=== PATIENT | female | born 1995 | race Asian ===

== ENCOUNTER 2017-04-27 20:53 | Outpatient (CLI) | payer MEDICAID ==
--- NOTE | 2017-04-29 07:37 | Ultrasound Report ---
: 04/27/2017 CLINICAL HISTORY: IUD check. COMPARISON: 01/13/2012 Transabdominal and transvaginal ultrasound were done. Real-time scanning performed and static images obtained. FINDINGS: The uterus is anteverted. It measures 7.7 cm x 3.7 cm x 6.0 cm. Volume is 90.1 mL. Endo metrial echo complex measures 3 mm. IUD is seen in good position within the endometrial echo complex . This is seen both on transabdominal and transvaginal ultrasound. Right ovary measures 6.3 cm x 3.6 cm x 4.7 cm for a volume of 55.4 cm. Associated with the right ova ry is a right ovarian cyst measuring 4.5 cm x 3.0 cm x 3.8 cm. Left ovary measures 2.8 cm x 1.5 cm x 2.3 cm for a volume of 5.3 mL. IMPRESSION: UTERUS SHOWS AN IUD IN PLACE IN GOOD POSITION WITHIN THE CENTRAL ENDOUTERINE CAVITY. ENLARGED RIGHT OVARY IS NOTED BY A BENIGN CYST MEASURING 4.5 CM X 3.0 CM X 3.8 CM. JOB #: [id number] EXT JOB #:[id number]
== END 2017-04-27 20:54 | disposition home or self-care (01) ==
LOC: DI 20:53
PROVIDERS: ATTEND Physician Assistant Medical
DX: Z30.431 Encounter for routine checking of intrauterine contraceptive device (principal); N83.201 Unspecified ovarian cyst, right side
CPT/HCPCS: 76830; 76856

== ENCOUNTER 2018-05-24 08:00 | Outpatient (CLI) | payer MEDICAID ==
[2018-05-26 12:47] LABS: HEPATITIS C ANTIBODY NON-REACTIVE (NON-REACTIVE)
[2018-05-26 16:47] LABS: HIV AG/AB 4TH GEN NON-REACTIVE (NON-REACTIVE)
== END 2018-05-24 08:01 ==
LOC: LAB.F 08:00
PROVIDERS: ATTEND Physician Assistant Medical
DX: Z78.9 Other specified health status (principal)
CPT/HCPCS: 36415; 86803; 87389

== ENCOUNTER 2018-06-03 13:20 | Outpatient (CLI) | payer MEDICAID ==
[2018-06-03 17:55] LABS: HCG UR QUAL NEGATIVE
== END 2018-06-03 13:21 | disposition home or self-care (01) ==
LOC: LAB.F 13:20
PROVIDERS: ATTEND Physician Assistant Medical
DX: N91.2 Amenorrhea, unspecified (principal); Z11.3 Encounter for screening for infections with a predominantly sexual mode of transmission
CPT/HCPCS: 81025; 87491; 87591

== ENCOUNTER 2018-11-17 15:42 | Outpatient (CLI) | payer MEDICAID ==
[2018-11-18 12:32] LABS: HEPATITIS C ANTIBODY NON-REACTIVE (NON-REACTIVE); HIV AG/AB 4TH GEN NON-REACTIVE (NON-REACTIVE)
== END 2018-11-17 15:43 | disposition home or self-care (01) ==
LOC: LAB.F 15:42
PROVIDERS: ATTEND Physician Assistant Medical
DX: Z20.2 Contact with and (suspected) exposure to infections with a predominantly sexual mode of transmission (principal)
CPT/HCPCS: 36415; 81599; 86592; 86803; 87389

== ENCOUNTER 2018-11-24 18:16 | Outpatient (CLI) | payer MEDICAID ==
--- NOTE | 2018-11-25 01:01 | Ultrasound Report ---
Reason: IUD SURVEILLANCE Procedure Date: 11/24/2018 Accession Number: [id number] / [id number] Procedure: US - Pelvic w/Transvaginal CPT Code: FULL RESULT: EXAM: PELVIC ULTRASOUND EXAM DATE: 11/24/2018 06:56 PM. CLINICAL HISTORY: IUD surveillance. COMPARISON: None. TECHNIQUE: Real-time transabdominal pelvic scan performed to identify the uterus and adnexa and as an overview of other pelvic structures, followed by transvaginal scan to provide greater detail of the uterus and adnexa, with static image documentation. FINDINGS: Uterus: 7.3 x 5.2 x 3.3 cm, volume 65.1 cc. Anteverted position. Normal overall size and echotexture. Masses: None. Endometrium: 2.6 mm. Normal. An IUD is seen centrally within the uterine cavity. Cervix: Unremarkable. Right Ovary: 3.2 x 2.3 x 2 cm, volume 7.7 cc. Normal echotexture and blood flow. Left Ovary: 2.8 x 2 x 1.6 cm, volume 4.7 cc. Normal echotexture and blood flow. Free Fluid: None. Other: None. IMPRESSION: Normal pelvic ultrasound exam noting satisfactory IUD placement. RADIA
== END 2018-11-24 18:17 | disposition home or self-care (01) ==
LOC: DI 18:16
PROVIDERS: ATTEND Physician Assistant Medical
DX: Z30.431 Encounter for routine checking of intrauterine contraceptive device (principal)
CPT/HCPCS: 76830; 76856

== ENCOUNTER 2020-07-07 18:04 | Outpatient (CLI) | payer MEDICAID ==
--- NOTE | 2020-07-07 22:00 | Ultrasound Report ---
PROCEDURE: Pelvic w/Transvaginal INDICATIONS: OVARIAN CYST TECHNIQUE: Real-time scanning was performed of the pelvic organs, with image documentation. Additional endovagi nal scanning was necessary due to incomplete visualization of the adnexal and endometrial structures by transabdominal scanning. COMPARISON: 11/24/2018. FINDINGS: Transabdominal scanning: Limited scanning through the kidneys shows no hydronephrosis. No pathologi c free abdominal or pelvic fluid. Endovaginal scanning: Uterus: Uterus is normal in size at 8.9 x 4.0 x 5.2 cm. The endometrium measures 5 mm in combined t hickness. An IUD is identified within the endometrial cavity. Ovaries: Right ovary measures 3.4 x 1.5 x 1.9 cm. Left ovary measures 3.5 x 2.5 x 2.9 cm. Incidental ovarian follicle versus cyst noted measuring 1.6 cm. No suspicious ovarian or adnexal mass lesions. IMPRESSION: 1. Pelvic ultrasound without acute sonographic abnormalities. 2. Intrauterine device identified within the endometrial cavity and appears appropriately positioned. Reviewed by: Cody Juarez MD on 07/07/2020 9:59 PM PDT Approved by: Cody Juarez MD on 07/07/2020 9:59 PM PDT Station ID: [id number]
== END 2020-07-07 18:05 | disposition home or self-care (01) ==
LOC: DI 18:04
PROVIDERS: ATTEND Registered Nurse
DX: N83.209 Unspecified ovarian cyst, unspecified side (principal); Z97.5 Presence of (intrauterine) contraceptive device
CPT/HCPCS: 76830; 76856

== ENCOUNTER 2020-08-30 08:00 | Outpatient (CLI) | payer MEDICAID ==
[2020-08-30 20:44] LABS: TRICHOMONAS VAGINALIS DNA NEGATIVE (NEGATIVE)
== END 2020-08-30 23:59 | disposition home or self-care (01) ==
LOC: LAB.R 08:00
PROVIDERS: ATTEND Advanced Practice Midwife
DX: Z78.9 Other specified health status (principal)
CPT/HCPCS: 87491; 87591; 87661

== ENCOUNTER 2022-11-27 08:00 | Outpatient (CLI) | payer MEDICAID ==
[2022-11-27 23:02] LABS: CHLAMYDIA TRACHOMATIS DNA NEGATIVE (NEGATIVE); NEISSERIA GONORRHOEAE DNA NEGATIVE (NEGATIVE); TRICHOMONAS VAGINALIS DNA NEGATIVE (NEGATIVE)
== END 2022-11-27 23:59 | disposition home or self-care (01) ==
LOC: LAB.R 08:00
PROVIDERS: ATTEND Obstetrics & Gynecology
DX: Z11.3 Encounter for screening for infections with a predominantly sexual mode of transmission (principal)
CPT/HCPCS: 87491; 87591; 87661

== ENCOUNTER 2022-12-11 22:10 | Outpatient (CLI) | payer MEDICAID ==
--- NOTE | 2022-12-12 16:58 | Ultrasound Report ---
PROCEDURE: Pelvic w/Transvaginal INDICATIONS: PELVIC PAIN TECHNIQUE: Real-time scanning was performed of the pelvic organs, with image documentation. Additional endovagi nal scanning was necessary due to incomplete visualization of the adnexal and endometrial structures by transabdominal scanning. COMPARISON: None. FINDINGS: Uterus: Uterus is anteverted and normal in size at 8.5 x 3.7 x 4.9 cm. The myometrium is homogeneou s. The endometrium measures 4 mm in combined thickness. Intrauterine device is present. Ovaries: The right ovary measures 4.6 x 2.8 x 3.3 cm, with a calculated ovarian volume of 22 cc. Th e left ovary measures 2.9 x 1.7 x 1.9 cm, with a calculated ovarian volume of 4.9 cc. The ovaries jung ve a normal sonographic appearance. Less than 12 follicles can be seen in each ovary. No adnexal ma sses are seen. Other: No pathologic free abdominal or pelvic fluid. IMPRESSION: 1. Negative examination. 2. Normally positioned intrauterine device. Reviewed by: Pineda Box MD on 12/12/2022 4:56 PM PST Approved by: Pineda Box MD on 12/12/2022 4:56 PM PST Station ID: [id number]
== END 2022-12-11 22:11 | disposition home or self-care (01) ==
LOC: DI 22:10
PROVIDERS: ATTEND Obstetrics & Gynecology
DX: R10.2 Pelvic and perineal pain (principal); Z97.5 Presence of (intrauterine) contraceptive device

== ENCOUNTER 2024-07-14 11:30 | Outpatient (CLI) | payer MEDICAID ==
[2024-07-14 21:09] LABS: CHLAMYDIA TRACHOMATIS DNA NEGATIVE (NEGATIVE); NEISSERIA GONORRHOEAE DNA NEGATIVE (NEGATIVE)
[2024-07-14 23:08] LABS: BACTERIAL VAGINOSIS DNA NEGATIVE (NEGATIVE); CANDIDA GLABRATA DNA NEGATIVE (NEGATIVE); CANDIDA GROUP DNA NEGATIVE (NEGATIVE); CANDIDA KRUSEI DNA NEGATIVE (NEGATIVE); TRICHOMONAS VAGINALIS DNA NEGATIVE (NEGATIVE)
== END 2024-07-14 11:45 | disposition home or self-care (01) ==
LOC: LAB.N 11:30
PROVIDERS: ATTEND Physician Assistant Medical
DX: N39.0 Urinary tract infection, site not specified (principal); Z11.3 Encounter for screening for infections with a predominantly sexual mode of transmission
CPT/HCPCS: 81514; 87086; 87491; 87591; 87661